=== PATIENT | female | born 1935 | race Caucasian/White ===

== ENCOUNTER → 2017-01-28 | Outpatient (CLI) | payer MEDICARE, OTHER ==
--- NOTE | 2017-01-28 14:20 | RADRPT ---
PROCEDURE: XR right knee. CLINICAL INDICATION: Knee pain TECHNIQUE: AP weightbearing, PA weightbearing, lateral weightbearing and sunrise views are availa ble for review. COMPARISON: None available FINDINGS: There is mild osteoarthrosis involving the patellofemoral compartment. This is associated with osteo phytosis. There is chondrocalcinosis with medial and lateral meniscal calcification. The osseous structures are otherwise normal in mineralization, architecture and alignment. No fract ures are identified. No osseous lesions are identified. The soft tissues are unremarkable. IMPRESSION: Mild osteoarthrosis involving the patellofemoral compartment. Chondrocalcinosis RPTAT: [facility] .Geoffrey Quinn MD, MD Date Time Electronically viewed and signed by .Geoffrey Quinn MD, on 01/28/2017 14:20 .B/
== END | disposition home or self-care (01) ==
LOC: HKI 10:19
PROVIDERS: ATTEND Orthopaedic Surgery
DX: S80.01XD Contusion of right knee, subsequent encounter (principal); W01.0XXD Fall on same level from slipping, tripping and stumbling without subsequent striking against object, subsequent encounter; M25.561 Pain in right knee; Z79.82 Long term (current) use of aspirin
CPT/HCPCS: 73564; G0463